=== PATIENT | female | born 1995 | race Caucasian/White ===

== ENCOUNTER 2017-05-12 19:01 | Emergency (ER) | payer MEDICAID ==
[2017-05-12] MEDS ORDERED: Pantoprazole 40 MG Vial IVPUSH ONE (20:58)
[2017-05-12] MEDS ORDERED: Ondansetron 4 MG/2 ML SDV IVPUSH ONE (20:58)
[2017-05-12] MEDS ORDERED: Sodium Chloride 0.9% 1,000 ML IV SCH (21:00)
[2017-05-12] MEDS ORDERED: Lactated Ringers 1,000 ML IV SCH (21:00)
--- NOTE | 2017-05-12 21:06 | EDM.PDOC ---
ED HPI GENERAL MEDICAL PROBLEM - General Chief Complaint: Gastrointestinal Problem Stated Complaint: 17 WEEKS PG - CAN'T STOP PG Time Seen by Provider: 05/12/17 20:46 Source of Information: Reports: Patient History Limitations: Reports: No Limitations - History of Present Illness INITIAL COMMENTS - FREE TEXT/NARRATIVE: Lazaro newton; this is a 21 year old 5 Para 3, at 17 weeks . She reports has history of nausea and vomiting in . She is currently being treated with Zofran, but ran out of medication 3 days ago. Has had 36 hours of continous vomiting. Now feeling weak and fatigue. denies any vaginal bleeding or discharge. has intermittent abdominal cramping. 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 Zhou [facility]), Spontaneous (hx of miscarrage) : 5 Para: 3 LMP (Approximate): (17 weeks ) Social & Family History - Tobacco Use Years of Tobacco use: 1 - Alcohol Use Days Per Week of Alcohol Use: 0 - Recreational Drug Use Recreational Drug Use: No - Living Situation & Occupation Living situation: Reports: with Family (lives in [place], [place]. with her 3 children ages 5 yrs, 4 yrs, 3 yrs.) ED ROS GENERAL - Review of Systems Review Of Systems: See Below Constitutional: Reports: Weakness, Fatigue, Decreased Appetite HEENT: Reports: No Symptoms Respiratory: Reports: No Symptoms Cardiovascular: Reports: No Symptoms Endocrine: Reports: No Symptoms GI/Abdominal: Reports: Nausea, Vomiting : Reports: Other ( at 17 weeks.) Musculoskeletal: Reports: No Symptoms Skin: Reports: No Symptoms Neurological: Reports: No Symptoms Psychiatric: Reports: Other (crying) Hematologic/Lymphatic: Reports: No Symptoms Immunologic: Reports: No Symptoms ED EXAM, GENERAL - Physical Exam Exam: See Below Exam Limited By: No Limitations General Appearance: Mild Distress (tearful) Eye Exam: Bilateral Eye: Normal Inspection, PERRL Ears: Normal External Exam Nose: Normal Inspection Throat/Mouth: Normal Inspection Head: Atraumatic, Normocephalic Neck: Normal Inspection, Supple, Non-Tender, Full Range of Motion Respiratory/Chest: No Respiratory Distress, Lungs Clear, Normal Breath Sounds, No Accessory Muscle Use Cardiovascular: Regular Rate, Rhythm, No Murmur GI/Abdominal: Normal Bowel Sounds, Soft, Non-Tender, Other () (Female) Exam: Deferred Rectal (Female) Exam: Deferred Back Exam: Normal Inspection, Full Range of Motion Extremities: Normal Inspection, Normal Range of Motion, Non-Tender, No Pedal Edema, Normal Capillary Refill Neurological: Alert, Oriented, No Motor/Sensory Deficits Psychiatric: Tearful Skin Exam: Warm, Dry, Intact, Normal Color, No Rash Lymphatic: No Adenopathy Course - Vital Signs Last Recorded V/S: Last Vital Signs Temp 37.1 C 05/12/17 21:27 Pulse 80 05/12/17 21:27 Resp 15 05/12/17 21:27 BP 112/65 05/12/17 21:27 Pulse Ox 99 05/12/17 21:27 - Orders/Labs/Meds Orders: Active Orders 24 hr Category Date Time Status Heart Tones [RC] ASDIRECTED Care 05/12/17 20:59 Active Labs: Laboratory Tests 05/12/17 05/12/17 05/12/17 Range/Units 20:58 20:58 21:12 WBC 18.0 H (4.5-11.0) K/uL RBC 4.17 (3.30-5.50) M/uL Hgb 13.1 (12.0-15.0) g/dL Hct 37.2 (36.0-48.0) % MCV 89 (80-98) fL MCH 31 (27-31) pg MCHC 35 (32-36) % Plt Count 228 (150-400) K/uL Neut % (Auto) 89 H (36-66) % Lymph % (Auto) 6 L (24-44) % [place] % (Auto) 4 (2-6) % Eos % (Auto) 1 L (2-4) % Baso % (Auto) 0 (0-1) % Sodium 139 L (140-148) mmol/L Potassium 3.2 L (3.6-5.2) mmol/L Chloride 103 (100-108) mmol/L Carbon Dioxide 23 (21-32) mmol/L Anion Gap 16.2 H (5.0-14.0) mmol/L BUN 10 (7-18) mg/dL Creatinine 0.5 L (0.6-1.0) mg/dL Est Cr Clr Drug Dosing 125.69 mL/min Estimated GFR (MDRD) > 60 (>60) Glucose 93 (74-106) mg/dL Calcium 8.8 (8.5-10.1) mg/dL Urine Color Yellow Urine Appearance Slightly cloudy Urine pH 5.0 (4.5-8.0) Ur Specific [place] 1.025 (1.008-1.030) Urine Protein Negative (NEGATIVE) mg/dL Urine Glucose (UA) Normal (NEGATIVE) mg/dL Urine Ketones 150 H (NEGATIVE) mg/dL Urine Occult Blood Trace (NEGATIVE) Urine Nitrite Negative (NEGATIVE) Urine Bilirubin Negative (NEGATIVE) Urine Urobilinogen Normal (NORMAL) mg/dL Ur Leukocyte Esterase Negative (NEGATIVE) Urine RBC 0-5 (0-5) Urine WBC 0-5 (0-5) Ur Epithelial Cells Moderate Amorphous Sediment Not seen Urine Bacteria Moderate Urine Mucus Moderate Meds: Medications Discontinued Medications Generic Name Dose Route Start Last Admin Trade Name Freq PRN Reason Stop Dose Admin Lactated Ringer's 1,000 mls @ 999 mls/hr 05/12/17 21:00 05/12/17 21:28 Ringers, Lactated IV 999 mls/hr ASDIRECTED NEERU Administration Sodium Chloride 1,000 mls @ 999 mls/hr 05/12/17 21:00 Normal Saline IV ASDIRECTED NEERU Ondansetron HCl 4 mg 05/12/17 20:58 05/12/17 21:28 Zofran IVPUSH 05/12/17 20:59 4 mg ONETIME ONE Administration Pantoprazole Sodium 40 mg 05/12/17 20:58 05/12/17 21:28 Protonix Iv IVPUSH 05/12/17 20:59 40 mg ONETIME ONE Administration - Re-Assessments/Exams Free Text/Narrative Re-Assessment/Exam: 05/12/17 21:20 will order CBC, BMP, UA medications; IV Normal Saline and LR over 2 hours, IV Zofran 4mg, IV Protonix 40mg. 05/12/17 22:33 improved with one liter of fluids and zofran. ready for discharge to home. Departure - Departure Time of Disposition: 22:45 Disposition: Home, Self-Care 01 Condition: Good Clinical Impression: Hyperemesis gravidarum - Discharge Information Instructions: Hyperemesis Gravidarum Referrals: PCP,None [Primary Care Provider] - Forms: ED Department Discharge Care Plan Goals: Hyperemesis -Zofran odt one every 8 hours as needed for nausea -push fluids -BRAT diet; bananas, rice, apple and toast -advance diet as tolerated -follow up with ELECTRICAL CONTINUITY INSPECTOR for recheck in 1-2 days Return to ER immediately for any spotting, bleeding, sudden gush of fluids, fevers, chills, uncontrolled vomiting or any concerns. - Problem List & Annotations (1) Hyperemesis gravidarum SNOMED Code(s): 72177492 Code(s): O21.0 - MILD HYPEREMESIS GRAVIDARUM Status: Acute Priority: High - Problem List Review Problem List Initiated/Reviewed/Updated: Yes - My Orders Last 24 Hours: My Active Orders 05/12/17 20:59 Heart Tones [RC] ASDIRECTED - Assessment/Plan Last 24 Hours: My Active Orders 05/12/17 20:59 Heart Tones [RC] ASDIRECTED Plan: Hyperemesis -Zofran odt one every 8 hours as needed for nausea#15 -push fluids -BRAT diet; bananas, rice, apple and toast -advance diet as tolerated -follow up with ELECTRICAL CONTINUITY INSPECTOR for recheck in 1-2 days Return to ER immediately for any spotting, bleeding, sudden gush of fluids, fevers, chills, uncontrolled vomiting or any concerns.
== END 2017-05-12 22:44 | disposition home or self-care (01) ==
LOC: JP.ED 19:01
DX: O21.0 Mild hyperemesis gravidarum (principal); Z3A.17 17 weeks gestation of pregnancy
CPT/HCPCS: 36415; 80048; 81001; 85025; 96374; 96375; 99284; C9113; J2405; J7120

== ENCOUNTER 2017-07-16 08:34 | Emergency (ER) | payer MEDICAID ==
[2017-07-16] MEDS ORDERED: Lactated Ringers 1,000 ML IV ONE (09:24)
[2017-07-16] MEDS ORDERED: Promethazine 25 MG in Sodium Chloride 0.9% 50 ML IV STA (09:24)
--- NOTE | 2017-07-16 09:30 | EDM.PDOC ---
ED HPI GENERAL MEDICAL PROBLEM - General Chief Complaint: Gastrointestinal Problem Stated Complaint: FLU? VOMITING Time Seen by Provider: 07/16/17 09:15 Source of Information: Reports: Patient History Limitations: Reports: No Limitations - History of Present Illness INITIAL COMMENTS - FREE TEXT/NARRATIVE: 21 yo female who has Zofran at home presents with nausea/vomiting not controlled with her Zofran. Is a little dizzy with standing. No diarrhea. No fever. Has not discussed with her OB doctor in [place]. Onset: Gradual Onset Date: 07/15/17 Duration: Day(s): (Just over 24 hrs), Constant Location: Reports: Generalized Quality: Reports: Other (no pain) Severity: Moderate Improves with: Reports: None Worsens with: Reports: Eating Associated Symptoms: Reports: Nausea/Vomiting. Denies: Fever/Chills Treatments CORN GROWER: Reports: Other (see below) (Zofran with insufficient benefit) Abdominal Pain Score (Numeric/FACES): 6 - Related Data Allergies Allergy/AdvReac Type Severity Reaction Status Date / Time No Known Allergies Allergy Verified 05/12/17 20:55 Home Meds: Home Meds Ondansetron HCl [Ondansetron] 4 mg PO Q4HR 07/16/17 [History] Vit37/Iron/Folic Acid [[place]] 1 each PO DAILY 07/16/17 [History] Sucralfate [Sucralfate] 1 gm PO DAILY 07/16/17 [History] Past Medical History - Past Health History Medical/Surgical History: Denies Medical/Surgical History HEENT History: Reports: Impaired Vision Gastrointestinal History: Reports: GERD 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 with her 3 children ages 5 yrs, 4 yrs, 3 yrs.) ED ROS GENERAL - Review of Systems Review Of Systems: See Below Constitutional: Reports: Decreased Appetite HEENT: Reports: No Symptoms Respiratory: Reports: No Symptoms Cardiovascular: Reports: Lightheadedness (with standing) GI/Abdominal: Reports: Decreased Appetite, Nausea, Vomiting. Denies: Abdominal Pain, Black Stool, Bloody Stool, Constipation, Diarrhea, Stool Incontinence : Reports: No Symptoms Musculoskeletal: Reports: No Symptoms Skin: Reports: No Symptoms Neurological: Reports: No Symptoms Psychiatric: Reports: No Symptoms ED EXAM, GI/ABD - Physical Exam Exam: See Below Exam Limited By: No Limitations General Appearance: Alert, WD/WN, No Apparent Distress Eyes: Bilateral: Normal Appearance Ears: Normal External Exam, Normal Canal, Hearing Grossly Normal, Normal TMs Nose: Normal Inspection, Normal Mucosa, No Blood Throat/Mouth: Normal Inspection, Normal Lips, Normal Oropharynx, Normal Voice, No Airway Compromise Head: Atraumatic, Normocephalic Neck: Normal Inspection, Supple, Non-Tender Respiratory/Chest: No Respiratory Distress, Lungs Clear, Normal Breath Sounds, No Accessory Muscle Use Cardiovascular: Regular Rate, Rhythm, No Edema GI/Abdominal Exam: Normal Bowel Sounds, Soft, Non-Tender Back Exam: Normal Inspection. No: CVA Tenderness (R), CVA Tenderness (L) Extremities: Normal Inspection, Normal Range of Motion, Non-Tender, No Pedal Edema, Normal Capillary Refill Neurological: Alert, Oriented, CN II-XII Intact, Normal Cognition, No Motor/ Sensory Deficits Psychiatric: Normal Affect, Normal Mood Skin Exam: Warm, Dry, Intact, Normal Color, No Rash Lymphatic: No Adenopathy Course - Vital Signs Text/Narrative:: Feeling better now after LR 1000 ml IV and promethazine 25 mg IV, 10:30 am Last Recorded V/S: Last Vital Signs Temp 36.1 C 07/16/17 08:58 Pulse 71 07/16/17 08:58 Resp 16 07/16/17 08:58 BP 114/57 L 07/16/17 08:58 Pulse Ox 97 07/16/17 08:58 - Orders/Labs/Meds Meds: Medications Discontinued Medications Generic Name Dose Route Start Last Admin Trade Name Freq PRN Reason Stop Dose Admin Lactated Ringer's 1,000 mls @ 1,000 mls/hr 07/16/17 09:24 07/16/17 09:48 Ringers, Lactated IV 07/16/17 10:23 1,000 mls/hr BOLUS ONE Administration Promethazine HCl 25 mg/ Sodium 51 mls @ 200 mls/hr 07/16/17 09:24 07/16/17 09 :48 Chloride IV 07/16/17 09:39 200 mls/hr NOW STA Administration Departure - Departure Time of Disposition: 10:45 Disposition: Home, Self-Care 01 Condition: Good Clinical Impression: First trimester Nausea and vomiting Qualifiers: Vomiting type: unspecified Vomiting Intractability: non-intractable Qualified Code(s): R11.2 - Nausea with vomiting, unspecified - Discharge Information Referrals: PCP,None [Primary Care Provider] - Forms: ED Department Discharge
== END 2017-07-16 10:59 | disposition home or self-care (01) ==
LOC: JP.ED 08:34
DX: O21.9 Vomiting of pregnancy, unspecified (principal); Z87.891 Personal history of nicotine dependence; Z3A.00 Weeks of gestation of pregnancy not specified
CPT/HCPCS: 96361; 96374; 99284; J2550; J7050; J7120